=== PATIENT | female | born 1945 | race Two or more races ===

== ENCOUNTER → 2017-08-09 | Outpatient (CLI) | payer MEDICARE, OTHER ==
--- NOTE | 2017-08-09 15:04 | Diagnostic Imaging Report ---
PROCEDURE: X-RAY CHEST, TWO VIEWS COMPARISON: None. INDICATIONS: DYSPNEA, LEFT RIB FRACTURE FINDINGS: Lungs are well-inflated. No focal airspace consolidation, pleural effusion, or pneumothorax. Tortuosity and atherosclerotic calcification of the thoracic aorta. Normal heart size without pulmonary edema. Cervical spine fusion hardware partially visualized. Age indeterminate fracture deformities of the posterior left sixth and probably seventh ribs. CONCLUSION: Age-indeterminate fracture deformities of the left posterior sixth and likely seventh ribs, without pneumothorax. No acute cardiopulmonary abnormality. Dictated by: Berry Franco M.D. on 08/09/2017 at 10:09 Electronically approved by: Berry Franco M.D. on 08/09/2017 at 10:09
== END ==
LOC: RAD 09:35
PROVIDERS: ATTEND Internal Medicine Pulmonary Disease
DX: R06.00 Dyspnea, unspecified (principal)
CPT/HCPCS: 71046